=== PATIENT | female | born 1985 | race Caucasian/White ===

== ENCOUNTER → 2023-06-02 09:49 | Outpatient (REF) | payer OTHER, SELFPAY | LOC: HWRAD 09:49 | PROVIDERS: ATTENDING PHYSICIAN Obstetrics & Gynecology; FAMILY PHYSICIAN Internal Medicine | DX: N97.9 Female infertility, unspecified (principal); N80.8 Other endometriosis | CPT/HCPCS: 76830; 76856 ==

== ENCOUNTER → 2023-08-01 10:47 | Outpatient (REF) | payer OTHER, SELFPAY | LOC: RAD 10:47 | PROVIDERS: ATTENDING PHYSICIAN Obstetrics & Gynecology; FAMILY PHYSICIAN Internal Medicine | DX: N97.9 Female infertility, unspecified (principal); N80.8 Other endometriosis | CPT/HCPCS: 58340; 74740 ==